=== PATIENT | female | born 1995 | race Two or more races ===

== ENCOUNTER 2024-04-08 13:00 | Emergency (ER) | payer OTHER ==
[~2024-04-08] VITALS: Ht 154.9 cm; Wt 90.7 kg
[2024-04-08] MEDS ORDERED: FOLIC ACID1 MG (14:02)
[2024-04-08] MEDS ORDERED: [UNRECOGNIZED DRUG - OTHER] (14:02)
[2024-04-08] MEDS ORDERED: PRENATAL + DHA1 EAC1 (14:03)
[2024-04-08 15:26] LABS: HEMATOCRIT 37.9 % (36.0-45.00); MEAN CELL VOLUME 85.7 fL (80.00-100.00); MEAN CORPUSCULAR HEMOGLOBIN 29.3 pg (27.00-32.0); MEAN CORPUSCULAR HGB CONC 34.2 g/dl (32.0-36.0); PLATELET COUNT 244 K/uL (150-450); RED BLOOD COUNT 4.42 M/uL (4.00-6.00); RED CELL DISTRIBUTION WIDTH 14.3 % (11.5-14.5)
== END 2024-04-08 17:29 | disposition home or self-care (01) ==
LOC: ER 13:02
PROVIDERS: Emergency Medicine
DX: O20.9 Hemorrhage in early pregnancy, unspecified (principal); Z3A.18 18 weeks gestation of pregnancy; Z88.8 Allergy status to other drugs, medicaments and biological substances

== ENCOUNTER → 2024-04-22 16:00 | Outpatient (CLI) | payer OTHER ==
[~2024-04-22 16:00] MED LIST: FOLIC ACID1 MG; PRENATAL + DHA1 EAC1; [UNRECOGNIZED DRUG - OTHER]
== END | disposition home or self-care (01) ==
LOC: PRENATAL 16:00
PROVIDERS: ATTEND Obstetrics & Gynecology Maternal & Fetal Medicine
DX: O35.3XX0 Maternal care for (suspected) damage to fetus from viral disease in mother, not applicable or unspecified (principal); O44.00 Complete placenta previa NOS or without hemorrhage, unspecified trimester; Z3A.20 20 weeks gestation of pregnancy

== ENCOUNTER → 2024-06-16 10:07 | Outpatient (CLI) | payer OTHER | END | disposition home or self-care (01) | LOC: PRENATAL 10:07 | PROVIDERS: ATTEND Obstetrics & Gynecology Maternal & Fetal Medicine | DX: O26.849 Uterine size-date discrepancy, unspecified trimester (principal); O36.8199 Decreased fetal movements, unspecified trimester, other fetus; Z3A.28 28 weeks gestation of pregnancy ==

== ENCOUNTER 2024-07-28 08:59 | Outpatient (CLI) | payer OTHER | END 2024-07-28 09:00 | disposition home or self-care (01) | LOC: PRENATAL 08:59 | PROVIDERS: ATTEND Obstetrics & Gynecology Maternal & Fetal Medicine | DX: O26.849 Uterine size-date discrepancy, unspecified trimester (principal); O36.8199 Decreased fetal movements, unspecified trimester, other fetus; O24.419 Gestational diabetes mellitus in pregnancy, unspecified control; O99.210 Obesity complicating pregnancy, unspecified trimester; Z3A.34 34 weeks gestation of pregnancy ==

== ENCOUNTER 2024-09-01 13:15 | Inpatient (IN) | payer OTHER ==
[~2024-09-01] VITALS: Ht 160 cm; Wt 99.8 kg
[2024-09-02] MEDS ORDERED: AMPICILLIN SODIUM 2,000 MG VIAL IV STA (05:10)
[2024-09-02] MEDS ORDERED: RINGERS SOLUTION,LACTATED 1,000 ML IV SCH (05:15)
[2024-09-02 05:48] VITALS: BP 128/76
[2024-09-02 06:23] LABS: PH,URINE 6.5 (5.0-8.0); URINE APPEARANCE Cloudy; URINE BILIRRUBIN Negative (NEGATIVE); URINE BLOOD Small; URINE COLOR Yellow; URINE GLUCOSE Negative (NEGATIVE); URINE LEUKOCYTE Small; URINE NITRATE Negative; URINE PROTEIN Trace (NEGATIVE); URINE UROBILINOGEN 0.2 E.U./dl
[2024-09-02 06:25] LABS: URINE BACTERIA 4324.3 uL (0.0-1933); URINE EPITHELIAL CELLS 199.3 uL (0.0-38.8)
[2024-09-02 06:44] LABS: HEMATOCRIT 41.2 % (36.0-45.00); HEMOGLOBIN 14.3 g/dL (12.0-15.00); MEAN CELL VOLUME 85.4 fL (80.00-100.00); MEAN CORPUSCULAR HEMOGLOBIN 29.7 pg (27.00-32.0); MEAN CORPUSCULAR HGB CONC 34.7 g/dl (32.0-36.0); PLATELET COUNT 215 K/uL (150-450); RED BLOOD COUNT 4.82 M/uL (4.00-6.00); RED CELL DISTRIBUTION WIDTH 14.5 % (11.5-14.5)
[2024-09-02 06:46] LABS: INR 0.94; PARTIAL THROMBOPLASTIN TIME 29.8 SECONDS (22.0-34.0); PROTHROMBIN TIME 10.3 SECONDS (9.0-11.5)
[2024-09-02] MEDS ORDERED: OXYTOCIN 500 ML IV SCH (07:00)
[2024-09-02 07:19] LABS: ALBUMIN 3.2 gm/dL (3.4-5.0); BILIRUBIN TOTAL 0.34 mg/dL (0.3-1.2); CALCIUM 9.8 mg/dL (8.5-10.1); CREATININE SERUM 0.48 mg/dL (0.55-1.02); GFR 151.85; GLOBULINA 3.8 G/DL (2.4-3.5); POTASSIUM 3.99 mEq/L (3.5-5.1)
[2024-09-02] MEDS ORDERED: OXYTOCIN 20 UNITS/500ML RL PIGGYBAG IV ONE (07:28)
[2024-09-02 07:43] LABS: URINE CAST 0.29 uL (0.0-1.40); URINE KETONE 40 (NEGATIVE)
[2024-09-02 07:50] VITALS: BP 131/78
[2024-09-02] MEDS ORDERED: AMPICILLIN SODIUM 1,000 MG VIAL IV SCH (09:00)
[2024-09-02] MEDS ORDERED: PROMETHAZINE HCL 25 MG/ML AMPUL ONE (09:19)
[2024-09-02] MEDS ORDERED: PROMETHAZINE HCL 25 MG/ML AMPUL IV ONE (10:00)
[2024-09-02] MEDS ORDERED: MEPERIDINE HCL/PF 50 MG/ML VIAL IV ONE (10:00)
[2024-09-02 11:17] VITALS: BP 127/68
[2024-09-02] MEDS ORDERED: ERYTHROMYCIN BASE OPHT 1GM EACH TUBE OP ONE ×2 (12:52→14:00)
[2024-09-02] MEDS ORDERED: LIDOCAINE HCL 1% 10ML VIAL ONE (12:53)
[2024-09-02] MEDS ORDERED: CHLORHEXIDINE GLUCONATE 120 ML BOTTLE TOP ONE ×2 (12:53→14:00)
[2024-09-02] MEDS ORDERED: OXYTOCIN 20 UNITS/1000ML RL PIGGYBAG IV ONE ×3 (12:53→16:35)
[2024-09-02] MEDS ORDERED: CARBOPROST TROMETHAMINE 250 MCG/ML AMPUL IM ONE (13:07)
[2024-09-02] MEDS ORDERED: METHYLERGONOVINE MALEATE 0.2 MG/ML AMPUL ONE (13:10)
[2024-09-02] MEDS ORDERED: OXYTOCIN 10 UNITS/ML VIAL ONE (13:12)
[2024-09-02] MEDS ORDERED: OxyCODONE HCL/APAP UD (PERCOCET) PO PRN (14:00)
[2024-09-02] MEDS ORDERED: ACETAMINOPHEN 325 MG TABLET PO PRN (14:00)
[2024-09-02] MEDS ORDERED: LIDOCAINE HCL 1% 10ML VIAL IJ ONE (14:00)
[2024-09-02 15:40] VITALS: BP 130/63
[2024-09-02] MEDS ORDERED: BENZOCAINE/MENTHOL 90 ML BOTTLE TOP SCH (17:00)
[2024-09-02] MEDS ORDERED: HYDROCORTISONE 2.5% 30 GM TUBE RECTAL SCH (17:00)
[2024-09-02 17:17] VITALS: BP 128/78
[2024-09-02 20:42] LABS: MEAN CELL VOLUME 86.8 fL (80.00-100.00); MEAN CORPUSCULAR HEMOGLOBIN 28.9 pg (27.00-32.0); MEAN CORPUSCULAR HGB CONC 33.3 g/dl (32.0-36.0); PLATELET COUNT 204 K/uL (150-450); RED BLOOD COUNT 4.15 M/uL (4.00-6.00); RED CELL DISTRIBUTION WIDTH 14.1 % (11.5-14.5)
[2024-09-03 00:33] VITALS: BP 131/62
[2024-09-03 08:00] VITALS: BP 115/78
[2024-09-03 15:01] VITALS: BP 120/79
[2024-09-04 00:24] VITALS: BP 115/76
[2024-09-04 08:29] VITALS: BP 124/82
== END 2024-09-04 15:49 | disposition home or self-care (01) | DRG 807 ==
LOC: LDR 09-02 05:04 → OB/GYN 09-02 05:04
PROVIDERS: ADMIT Specialist; ATTEND Specialist
PROC: 10E0XZZ Delivery of Products of Conception, External Approach (ICD-10-PCS; principal; 2024-09-02)
PROC: 0HQ9XZZ Repair Perineum Skin, External Approach (ICD-10-PCS; 2024-09-02)
PROC: 0UQG7ZZ Repair Vagina, Via Natural or Artificial Opening (ICD-10-PCS; 2024-09-02)
PROC: 3E033VJ Introduction of Other Hormone into Peripheral Vein, Percutaneous Approach (ICD-10-PCS; 2024-09-02)
PROC: 4A1HXCZ Monitoring of Products of Conception, Cardiac Rate, External Approach (ICD-10-PCS; 2024-09-02)
DX: O70.0 First degree perineal laceration during delivery (principal); O69.81X0 Labor and delivery complicated by cord around neck, without compression, not applicable or unspecified; O99.824 Streptococcus B carrier state complicating childbirth; O24.420 Gestational diabetes mellitus in childbirth, diet controlled; Z37.0 Single live birth; Z3A.39 39 weeks gestation of pregnancy